=== PATIENT | female | born 1935 | race Caucasian/White ===

== ENCOUNTER 2016-08-26 16:50 | Inpatient (IN) | payer OTHER ==
[~2016-08-26] VITALS: Ht 152.4 cm; Wt 63.5 kg
[~2016-08-26 16:50] MED LIST: ATIVAN0.5 MG PO; ATORVASTATIN CA20 MG PO; Ativan PO; B-121000 MC2 PO; CALCIO DEL MAR500 MG PO; CHILDREN'S ASPI81 M1 PO; DETROL LA4 MG PO; DUONEB3 ML IH; Detrol LA PO; GEMFIBROZIL600 MG PO; HYDROCHLOROTHIA25 MG PO; Hydrodiuril,Oretic,E PO; INTRINSI B12-F1 EACH PO; KLOR-CON 88 ME1 PO; LOTREL 10/41 CAPSULE PO; LOVENOX40 MG/0.4 SC; MYRBETRIQ25 MG PO; OXYBUTYNIN CHLOR5 MG PO; POTASSIUM CHLOR8 ME2 PO; PRAVASTATIN SOD10 MG PO; PRIMIDONE50 MG PO; PROPRANOLOL HCL80 M1 PO; TRICOR145 MG PO; VALSARTAN160 MG PO; VITAMIN PO; ZITHROMAX250 MG PO
[2016-08-26 17:42] LABS: EOSINOPHIL (%) 0.5 % (0-5); EOSINOPHIL COUNT 0.1 K/uL (0-0.3); IMMATURE GRANULOCYTE (%) 0.2 % (0.0-0.7); IMMATURE GRANULOCYTE COUNT 0.2 K/uL; LYMPHOCYTE COUNT 1.4 K/uL (1.0-2.8); MCH 29.2 PG (29.0-34.0); MCHC 33.3 G/DL (30.0-36.0); MCV 87.6 FL (83-99); MEAN PLAT.VOLUME 10.5 uM^3 (9.5-12.4); MONOCYTE (%) 9.9 % (3-12); MONOCYTE COUNT 1.2 K/uL (0-0.8); NEUTROPHIL (%) 77.9 % (45-76); NEUTROPHIL COUNT 9.4 K/uL (1.8-6.4); PLATELET COUNT 268 K/uL (156-360); RBC DIS.WIDTH-SD 43.7 % (39-53); RED BLOOD COUNT 4.45 M/uL (3.80-5.20)
[2016-08-26 17:56] LABS: CHLORIDE 99 mEq/L (99-109); POTASSIUM 3.7 mEq/L (3.7-5.4); SODIUM 137 mEq/L (136-147)
[2016-08-26 17:58] LABS: GLUCOSE 122 mg/dL (70-99)
[2016-08-26 17:59] LABS: ANION GAP 14 MEQ/L (2-14)
[2016-08-26 18:00] LABS: TOTAL BILIRUBIN 0.6 mg/dL (0.0-1.0)
[2016-08-26 18:02] LABS: ALKALINE PHOSPHATASE 70 IU/L (3-129); GFR ESTIMATE (CALCULATED) 57 mL/min/
[2016-08-26 18:03] LABS: UREA NITROGEN (BUN) 29 mg/dL (9-23)
[2016-08-26 18:21] LABS: ADD MIUA? YES; BILIRUBIN NEGATIVE; BLOOD NEGATIVE; COLOR YELLOW ((YELLOW)); GLUCOSE (STRIP) NEGATIVE; KETONES NEGATIVE; LEUKOCYTES NEGATIVE; NITRITE NEGATIVE; PH, URINE 5.5 (5-8); PROTEIN (STRIP) NEGATIVE; SPECIFIC GRAVITY 1.013 (1.000-1.030)
[2016-08-26 18:48] LABS: BACTERIA 4+; CASTS NONE SEEN /LPF; CRYSTALS NONE SEEN; EPITHELIAL CELLS NONE SEEN; MUCUS NONE SEEN; RED BLOOD CELLS 0-5 /HPF (0-5); UCUL ADDED? YES; WHITE BLOOD CELLS 0-5 /HPF (0-5)
[2016-08-26] MEDS ORDERED: [UNRECOGNIZED DRUG - REMARK] PO (20:18)
[2016-08-26] MEDS ORDERED: KENALOG,ARISTOC15 G3 TP (20:19)
[2016-08-26] MEDS ORDERED: KLOR-CON 1010 ME1 PO (20:20)
[2016-08-26 21:45] VITALS: BP 110/56
[2016-08-27] VITALS (7 sets, daily range): BP systolic 80–134; BP diastolic 42–67
[2016-08-27 07:13] LABS: EOSINOPHIL (%) 4.3 % (0-5); EOSINOPHIL COUNT 0.4 K/uL (0-0.3); HEMATOCRIT 30.5 % (36.0-46.0); IMMATURE GRANULOCYTE (%) 0.3 % (0.0-0.7); LYMPHOCYTE COUNT 1.6 K/uL (1.0-2.8); MCH 29.4 PG (29.0-34.0); MCHC 32.1 G/DL (30.0-36.0); MEAN PLAT.VOLUME 10.7 uM^3 (9.5-12.4); MONOCYTE (%) 9.7 % (3-12); MONOCYTE COUNT 0.9 K/uL (0-0.8); NEUTROPHIL (%) 68.3 % (45-76); NEUTROPHIL COUNT 6.4 K/uL (1.8-6.4); PLATELET COUNT 210 K/uL (156-360); RBC DIS.WIDTH-CV 14.3 % (11.8-14.6); RBC DIS.WIDTH-SD 48.2 % (39-53); WHITE BLOOD COUNT 9.4 K/uL (4.1-10.2)
[2016-08-27 07:15] LABS: MCV 91.6 FL (83-99); RED BLOOD COUNT 3.33 M/uL (3.80-5.20)
[2016-08-27 07:30] LABS: ANION GAP 8 MEQ/L (2-14); CHLORIDE 106 MEQ/L (99-109); GFR ESTIMATE (CALCULATED) > 59 mL/min/; GLUCOSE 105 mg/dL (70-99); POTASSIUM 3.4 MEQ/L (3.7-5.4); SAMPLE HEMOLYSIS CHECK 0; SAMPLE ICTERIC CHECK 0; SAMPLE LIPEMIA CHECK 0; SODIUM 141 MEQ/L (136-147); UREA NITROGEN (BUN) 22 mg/dL (9-23)
[2016-08-28 00:17] VITALS: BP 118/59
[2016-08-28 04:50] VITALS: BP 142/66
[2016-08-28 07:14] LABS: ANION GAP 9 MEQ/L (2-14); CHLORIDE 105 MEQ/L (99-109); GFR ESTIMATE (CALCULATED) > 59 mL/min/; GLUCOSE 94 mg/dL (70-99); SAMPLE HEMOLYSIS CHECK 0; SAMPLE ICTERIC CHECK 0; SAMPLE LIPEMIA CHECK 0; SODIUM 140 MEQ/L (136-147); UREA NITROGEN (BUN) 15 mg/dL (9-23)
[2016-08-28 07:16] LABS: EOSINOPHIL COUNT 0.5 K/uL (0-0.3); HEMATOCRIT 29.2 % (36.0-46.0); IMMATURE GRANULOCYTE (%) 0.2 % (0.0-0.7); LYMPHOCYTE COUNT 1.7 K/uL (1.0-2.8); MCH 29.3 PG (29.0-34.0); MCHC 31.8 G/DL (30.0-36.0); MCV 92.1 FL (83-99); MONOCYTE (%) 9.1 % (3-12); MONOCYTE COUNT 0.6 K/uL (0-0.8); NEUTROPHIL (%) 55.1 % (45-76); NEUTROPHIL COUNT 3.3 K/uL (1.8-6.4); PLATELET COUNT 188 K/uL (156-360); RBC DIS.WIDTH-CV 14.3 % (11.8-14.6); RBC DIS.WIDTH-SD 48.1 % (39-53); RED BLOOD COUNT 3.17 M/uL (3.80-5.20)
[2016-08-28 09:00] VITALS: BP 162/72
[2016-08-28 11:40] VITALS: BP 180/77
[2016-08-28 20:35] VITALS: BP 192/74
[2016-08-28 21:00] VITALS: BP 157/72
[2016-08-29] VITALS (7 sets, daily range): BP systolic 104–149; BP diastolic 50–83
[2016-08-29 06:22] LABS: EOSINOPHIL (%) 7.2 % (0-5); EOSINOPHIL COUNT 0.5 K/uL (0-0.3); HEMATOCRIT 32.3 % (36.0-46.0); IMMATURE GRANULOCYTE (%) 0.3 % (0.0-0.7); LYMPHOCYTE COUNT 1.4 K/uL (1.0-2.8); MCH 29.3 PG (29.0-34.0); MCHC 31.9 G/DL (30.0-36.0); MCV 91.8 FL (83-99); MONOCYTE (%) 8.3 % (3-12); MONOCYTE COUNT 0.5 K/uL (0-0.8); NEUTROPHIL (%) 61.4 % (45-76); NEUTROPHIL COUNT 3.8 K/uL (1.8-6.4); PLATELET COUNT 215 K/uL (156-360); RBC DIS.WIDTH-CV 14.1 % (11.8-14.6); RBC DIS.WIDTH-SD 46.8 % (39-53); RED BLOOD COUNT 3.52 M/uL (3.80-5.20); WHITE BLOOD COUNT 6.2 K/uL (4.1-10.2)
[2016-08-29 06:49] LABS: ANION GAP 8 MEQ/L (2-14); CHLORIDE 102 MEQ/L (99-109); GFR ESTIMATE (CALCULATED) > 59 mL/min/; GLUCOSE 103 mg/dL (70-99); POTASSIUM 4.3 MEQ/L (3.7-5.4); SAMPLE HEMOLYSIS CHECK 0; SAMPLE ICTERIC CHECK 0; SAMPLE LIPEMIA CHECK 0; SODIUM 138 MEQ/L (136-147); UREA NITROGEN (BUN) 10 mg/dL (9-23)
[2016-08-29 10:43] LABS: POC NON-PRINT COM 1 ND
[2016-08-30 04:24] VITALS: BP 133/45
[2016-08-30 06:39] LABS: EOSINOPHIL COUNT 0.5 K/uL (0-0.3); HEMATOCRIT 31.6 % (36.0-46.0); IMMATURE GRANULOCYTE (%) 0.2 % (0.0-0.7); IMMATURE GRANULOCYTE COUNT 0.1 K/uL; MCV 90.8 FL (83-99); MEAN PLAT.VOLUME 10.7 uM^3 (9.5-12.4); MONOCYTE (%) 10.1 % (3-12); MONOCYTE COUNT 0.7 K/uL (0-0.8); NEUTROPHIL (%) 51.5 % (45-76); NEUTROPHIL COUNT 3.4 K/uL (1.8-6.4); PLATELET COUNT 251 K/uL (156-360); RBC DIS.WIDTH-CV 13.7 % (11.8-14.6); RED BLOOD COUNT 3.48 M/uL (3.80-5.20); WHITE BLOOD COUNT 6.6 K/uL (4.1-10.2)
[2016-08-30 08:21] VITALS: BP 139/73
[2016-08-30 11:46] VITALS: BP 101/62
[2016-08-30 12:05] LABS: FERRITIN 53 NG/ML (10-291)
[2016-08-30 12:25] LABS: IRON 32 MCG/DL (35-150)
[2016-08-30 13:10] VITALS: BP 103/62
[2016-08-30] MEDS ORDERED: PANTOPRAZOLE SO40 MG PO (13:19)
[2016-08-30] MEDS ORDERED: CEFTIN500 MG PO (13:19)
[2016-08-30] MEDS ORDERED: FEROSUL325 MG PO (13:29)
[2016-08-30 16:23] VITALS: BP 141/74
[2016-08-31 14:42] LABS: POC NON-PRINT COM 1 ND
== END 2016-08-30 18:03 | DRG 194 ==
LOC: EME → EDBD 16:50 → EME 16:50 → 4EAST 20:19 → EDOF 20:19 → 4EAST 21:27
PROVIDERS: Emergency Medicine; Family Medicine; Internal Medicine Gastroenterology
DX: J18.9 Pneumonia, unspecified organism (principal); N39.0 Urinary tract infection, site not specified; F05 Delirium due to known physiological condition; J98.11 Atelectasis; K62.5 Hemorrhage of anus and rectum; E86.0 Dehydration; D50.9 Iron deficiency anemia, unspecified; A48.8 Other specified bacterial diseases; Z60.2 Problems related to living alone; E78.5 Hyperlipidemia, unspecified; M62.81 Muscle weakness (generalized); I10 Essential (primary) hypertension; F41.9 Anxiety disorder, unspecified; R55 Syncope and collapse; Z91.81 History of falling; Z86.711 Personal history of pulmonary embolism; Z79.82 Long term (current) use of aspirin
CPT/HCPCS: 70450; 71020; 80048; 80053; 81003; 82272; 82607; 82728; 82746; 83540; 84443; 84466; 85025; 85027; 87040; 87086; 93005; 97530 GO; 97530 GP; 99281; 99285; G0008; J0360; J0456; J0696; J1650; J7030; J7050

== ENCOUNTER → 2017-06-06 | Outpatient (CLI) | payer OTHER ==
[~2017-06-06] MED LIST changes: +CEFTIN500 MG PO; +FEROSUL325 MG PO; +KENALOG,ARISTOC15 G3 TP; +KLOR-CON 1010 ME1 PO; +PANTOPRAZOLE SO40 MG PO; +[UNRECOGNIZED DRUG - REMARK] PO
== END | disposition home or self-care (01) ==
DX: R13.12 Dysphagia, oropharyngeal phase (principal); R13.13 Dysphagia, pharyngeal phase; R13.11 Dysphagia, oral phase; Z87.01 Personal history of pneumonia (recurrent)
CPT/HCPCS: 92611 GN; G8996 GN; G8997 GN; G8998 GN